=== PATIENT | female | born 1965 | race Caucasian/White ===

== ENCOUNTER 2017-02-10 15:43 | Emergency (ER) | payer MEDICAID ==
[~2017-02-10] VITALS: Ht 152.4 cm; Wt 65.8 kg
[2017-02-10 19:34] VITALS: BP 125/69
== END 2017-02-10 19:34 | disposition home or self-care (01) ==
LOC: ED 15:43
DX: H81.10 Benign paroxysmal vertigo, unspecified ear (principal)
CPT/HCPCS: J2550